=== PATIENT | male | born 1975 | race Two or more races ===

== ENCOUNTER 2024-12-25 13:23 | Inpatient (IN) | payer OTHER ==
[~2024-12-25] VITALS: Ht 177.8 cm; Wt 181.4 kg
[2024-12-25] MEDS ORDERED: BUFFERED ASPIR325 M3 (13:34)
[2024-12-25] MEDS ORDERED: DAFLONEX-XL 11300 MG PO (13:34)
[2024-12-25] MEDS ORDERED: FAMOtidine 10 MG/ML (4ML VIAL) IV ONE (14:00)
[2024-12-25] MEDS ORDERED: VANCOMYCIN HCL 1,000 MG VIAL IV ONE (14:00)
[2024-12-25] MEDS ORDERED: VANCOMYCIN HCL 1,000 MG VIAL ONE (15:18)
[2024-12-25] MEDS ORDERED: FAMOTIDINE/PF 20 MG/2 ML VIAL ONE (15:18)
[2024-12-25 16:30] LABS: HEMOGLOBIN 13.8 g/dL (13-16.00); MEAN CELL VOLUME 87.5 fL (80.0-100.00); MEAN CORPUSCULAR HEMOGLOBIN 29.5 pg (27.00-32.0); MEAN CORPUSCULAR HGB CONC 33.7 g/dl (32.0-36.0); PLATELET COUNT 301 K/uL (150-450); RED BLOOD COUNT 4.69 M/uL (4.00-6.00)
[2024-12-25 16:56] LABS: ERYTHROCYTE SEDIMENTATION RATE > 130 mm/hr
[2024-12-25 17:49] LABS: URINE APPEARANCE Clear; URINE BILIRRUBIN Negative (NEGATIVE); URINE BLOOD Negative; URINE COLOR Yellow; URINE GLUCOSE Negative (NEGATIVE); URINE KETONE Negative (NEGATIVE); URINE LEUKOCYTE Negative; URINE NITRATE Negative; URINE PROTEIN Negative (NEGATIVE); URINE UROBILINOGEN 0.2 E.U./dl
[2024-12-25 17:53] LABS: URINE EPITHELIAL CELLS 30.3 uL (0.0-38.8); URINE RBC 4.4 uL (0.0-20.8)
[2024-12-25 18:30] LABS: URINE CAST 0.44 uL (0.0-1.40)
[2024-12-25] MEDS ORDERED: BACITRACIN-NEOMYCIN-POLYMYXIN 0.9 GM PACKET TOP ONE (19:08)
[2024-12-25] MEDS ORDERED: 0.9 % SODIUM CHLORIDE 1,000 ML IV SCH (20:15)
[2024-12-25] MEDS ORDERED: KETOROLAC TROMETHAMINE 30 MG VIAL IV PRN (20:30)
[2024-12-25] MEDS ORDERED: ONDANSETRON HCL 4 MG in DEXTROSE 5 % IN WATER 50 ML IV PRN (20:30)
[2024-12-25] MEDS ORDERED: ENALAPRILAT DIHYDRATE 1.25 MG/ML VIAL IV PRN (20:30)
[2024-12-25] MEDS ORDERED: ACETAMINOPHEN 500 MG GEL..CAP PO PRN (20:30)
[2024-12-25] MEDS ORDERED: VANCOMYCIN HCL 1,000 MG VIAL IV SCH (21:00)
[2024-12-25] MEDS ORDERED: FAMOTIDINE/PF 20 MG in 0.9 % SODIUM CHLORIDE 8 ML IV PUSH SCH (21:00)
[2024-12-25 22:27] LABS: LDH 172 U/L (87-241); PHOSPHOKINASE CREATININE 68 U/L (39-308)
[2024-12-25 22:34] VITALS: BP 112/72; O2SAT 96
[2024-12-26 02:24] VITALS: BP 132/86; O2SAT 95
[2024-12-26] MEDS ORDERED: LEVOTHYROXINE SODIUM 200 MCG TABLET PO SCH (06:00)
[2024-12-26 07:42] LABS: ALBUMIN 2.9 gm/dL (3.4-5.0); BILIRUBIN TOTAL 0.59 mg/dL (0.3-1.2); BILIRUBIN,CONJUGATED 0.15 mg/dL (0.0-0.2); BILIRUBIN,UNCONJUGATED 0.44 mg/dL (0.0-0.6); CALCIUM 8.2 mg/dL (8.5-10.1); CHOL HDL RATIO 2.8 (0-5.0); CREATININE SERUM 0.8 mg/dL (0.70-1.30); GFR 102.32; GLOBULINA 3.8 G/DL (2.4-3.5); POTASSIUM 4.7 mEq/L (3.5-5.1); TOTAL PROTEIN 6.7 gm/dL (6.4-8.2)
[2024-12-26 07:43] LABS: LDH 171 U/L (87-241); PHOSPHOKINASE CREATININE 67 U/L (39-308)
[2024-12-26 07:44] LABS: INR 0.99; PARTIAL THROMBOPLASTIN TIME 26.5 SECONDS (22.0-34.0); PROTHROMBIN TIME 10.8 SECONDS (9.0-11.5)
[2024-12-26 08:13] LABS: HEMATOCRIT 37.9 % (39.0-48.0); HEMOGLOBIN 12.9 g/dL (13-16.00); MEAN CELL VOLUME 87.3 fL (80.0-100.00); MEAN CORPUSCULAR HEMOGLOBIN 29.7 pg (27.00-32.0); PLATELET COUNT 247 K/uL (150-450); RED BLOOD COUNT 4.34 M/uL (4.00-6.00); RED CELL DISTRIBUTION WIDTH 14.8 % (11.5-14.5)
[2024-12-26 08:37] LABS: ERYTHROCYTE SEDIMENTATION RATE 105 mm/hr
[2024-12-26 08:47] LABS: C-REACTIVE PROTEIN 4.82 MG/DL (0.00-0.29)
[2024-12-26 08:54] VITALS: BP 114/80; O2SAT 98
[2024-12-26] MEDS ORDERED: PATIENTS OWN MEDICATION (MEDICAMENTO EN PISO) PO SCH (09:00)
[2024-12-26] MEDS ORDERED: ASPIRIN 325 MG TABLET PO SCH (09:00)
[2024-12-26] MEDS ORDERED: ENOXAPARIN SODIUM 40 MG/0.4 ML SYRINGE SUBCUTANEO SCH (09:00)
[2024-12-26 10:30] LABS: PH,URINE 5.5 (5.0-8.0); URINE APPEARANCE Clear; URINE BILIRRUBIN Negative (NEGATIVE); URINE BLOOD Negative; URINE COLOR Yellow; URINE GLUCOSE Negative (NEGATIVE); URINE KETONE Negative (NEGATIVE); URINE LEUKOCYTE Negative; URINE NITRATE Negative; URINE PROTEIN Negative (NEGATIVE); URINE UROBILINOGEN 0.2 E.U./dl
[2024-12-26 10:33] LABS: URINE BACTERIA 112.5 uL (0.0-1933); URINE EPITHELIAL CELLS 11.2 uL (0.0-38.8); URINE RBC 2.5 uL (0.0-20.8); URINE WBC 2.5 uL (0.0-23.2)
[2024-12-26 15:47] LABS: LDH 182 U/L (87-241); PHOSPHOKINASE CREATININE 66 U/L (39-308)
[2024-12-26 17:50] VITALS: BP 105/63; O2SAT 98
[2024-12-26] MEDS ORDERED: LINEZOLID IN DEXTROSE 5% 300 ML IV SCH (21:00)
[2024-12-27 01:44] VITALS: BP 154/81; O2SAT 94
[2024-12-27 08:30] VITALS: BP 153/77
[2024-12-27 17:15] VITALS: BP 130/75; O2SAT 98
[2024-12-28 01:12] VITALS: BP 117/77; O2SAT 98
[2024-12-28] MEDS ORDERED: KETOROLAC TROMETHAMINE 30 MG VIAL IM NR (07:30)
[2024-12-28 08:00] VITALS: BP 147/90; O2SAT 97
[2024-12-28] MEDS ORDERED: LINEZOLID 600 MG TABLET PO SCH (09:00)
== END 2024-12-28 10:17 | disposition home or self-care (01) | DRG 603 ==
LOC: ER 13:25 → MEDI 21:05
PROVIDERS: General Practice; ADMIT Internal Medicine; ATTEND Internal Medicine
PROC: B54CZZZ Ultrasonography of Left Lower Extremity Veins (ICD-10-PCS; principal; 2024-12-25)
PROC: B44GZZZ Ultrasonography of Left Lower Extremity Arteries (ICD-10-PCS; 2024-12-25)
DX: L03.116 Cellulitis of left lower limb (principal); I87.8 Other specified disorders of veins; Z88.0 Allergy status to penicillin; R74.02 Elevation of levels of lactic acid dehydrogenase [LDH]; E03.9 Hypothyroidism, unspecified